=== PATIENT | female | born 1955 | race Asian ===

== ENCOUNTER 2016-05-03 15:58 | Emergency (ER) | payer OTHER ==
[2016-05-03 17:48] VITALS: BP 143/73
--- NOTE | 2016-05-03 18:17 | Diag Imaging Result Document ---
PROCEDURE NAME: CHEST-2 VIEWS - 05/03/2016 CHEST, 2 VIEWS: FINDINGS: No comparison exam. Heart size appears within normal limits. The lungs appear clear. There is no pleural effusion or pneumothorax seen. There is mild thoracic dextroscoliosis noted. IMPRESSION: No evidence of acute disease.
--- NOTE | 2016-05-03 18:22 | PROVIDER DOCUMENTATION ---
HPI-EENT General - General Chief Complaint: Cold Symptoms Stated Complaint: CONGESTED, NOT FEELING WEEL Time Seen by Provider: 05/03/16 18:18 Allergies/Adverse Reactions: Patient Allergies Allergy/AdvReac Type Severity Reaction Status Date / Time No Known Allergies Allergy Verified 05/03/14 10:32 Home Medications: Home Medication List Medication Instructions Recorded Confirmed Last Taken Type Bacitracin Ointment 1 applicatn TOP PRN #1 tube 05/03/14 Unknown Rx Lisinopril/Hydrochlorothiazide 1 tab PO DAILY 05/03/14 05/03/14 05/03/14 06:00 History [Lisinopril-Hctz 10-12.5 mg Tab] Amoxicillin/Pot Clavulanate 875 mg PO Q12HR #20 tablet 05/03/16 Unknown Rx [Augmentin] Methylprednisolone [Medrol Dosepak] 4 mg PO DIRECTED #1 package 05/03/16 Unknown Rx - History of Present Illness-EENT General Nature of Presenting Problem: Pt c/o body aches, cough, congestion. Symptoms started yesterday. EENT Location: reports: nose, throat Quality of Pain: reports: pressure, sharp, throbbing Severity: reports: moderate Onset/Duration: reports: 6 days ago Timing: reports: still present, getting worse Prearrival Treatment: Initiated over the counter meds Associated Symptoms: reports: cough, facial pain/swelling, sinus infection, sore throat Other injuries?: denies: neck, head, back, other Locality of Occurance: Home Similar Symptoms Previously?: No Recently seen or treated by another doctor?: No - Eyes Eye Problem Symptoms: denies: eye pain, decrease vision, blurred vision, double vision, curtain, other, burning, itching, sensitivity to light, redness, matting , orbital swelling, eyelid swelling, foreign body sensation - Ears Ear Problem Symptoms: reports: earache. denies: none, hearing loss, ringing in ears, roaring in ears, discharge, other - Throat/Dental Throat/Dental Problem Symptoms: reports: sore throat. denies: none, toothache, jaw pain, swelling of jaw/face, trouble breathing, throat swelling, unable to swallow, other Recently seen a dentist or have an appointment?: No Review of Systems - Adult - REVIEW OF SYSTEMS - ADULT Constitutional: reports: see HPI. denies: no symptoms reported, chills, fever, fatique, night sweats, weight gain, weight loss, other Eyes: reports: no symptoms reported. denies: see HPI, discharge, dry eyes, decreased vision, blurred vision, double vision, eye pain, redness, other Ears, Nose, Mouth & Throat: reports: see HPI, ear pain, sinus problem, throat pain. denies: no symptoms reported, ear discharge, hearing loss, tinnitus, epistaxis, nose pain, loose teeth, mouth/dental pain, mouth swelling, hoarseness , throat swelling, other Cardiovascular: reports: no symptoms reported. denies: see HPI, chest pain, edema, heart murmur, irregular heart rate, orthopnea, palpitations, poor circulation, PND, syncope, other Respiratory: reports: see HPI, cough. denies: no symptoms reported, chronic cough, dyspnea on exertion, excessive sputum production, hemoptysis, pleurisy, shortness of breath, wheezing, other Gastrointestinal: reports: no symptoms reported. denies: see HPI, abdominal pain, hematemesis, constipation, diarrhea, difficulty swallowing, frequent heartburn, nausea, poor appetite, rectal bleeding, vomiting, other Genitourinary: reports: no symptoms reported. denies: see HPI, dysuria, discharge, frequency, flank pain, frequent UTI's, hematuria, hesitency, incontinence, urinary retention, urgency, other All Other Systems: Reviewed and Negative Past History - Adult - PAST MEDICAL HISTORY-ADULT Review of Records: reports: Old Records Reviewed, Nursing Assessment Review, Medications Reviewed, Social history reviewed & non-contributory. Major Childhood Illnesses: reports: denies history Cardiovascular: reports: HTN Respiratory: reports: denies history Gastrointestinal: reports: denies history Obstetrical/Gynecological: reports: denies history Genitourinary: reports: denies history Musculoskeletal: reports: denies history Neurological: reports: denies history Endocrine/Immune: reports: denies history Other Conditions: reports: denies history - PRIOR SURGERIES/PROCEDURES Surgical/Procedure History: reports: hysterectomy, other (ear) - PRIOR HOSPITALIZATIONS Prior Hospitalizations: reports: none - IMMUNIZATION STATUS Childhood Immunizations: See Nurse Assessment Flu Vaccine: See Nurse Assessment - FAMILY HISTORY Family History: reviewed, not pertinent Physical Exam- EENT - Physical Exam EENT Initial Vital Signs Reviewed: Yes General Appearance: appears well, alert, no apparent distress Eye Exam: bilateral eye: normal inspection, PERRL, EOMI Ear Exam: bilateral ear: auricle normal, canal normal, TM normal Nasal Exam: discharge, sinus tenderness. negative: normal inspection, active bleeding, dried blood, foreign body, other Throat Exam: normal mouth inspection, pharynx normal. negative: dental tenderness, excessive drooling, foreign body, mandibular swelling, maxillary swelling, pharynx swelling, pharynx tenderness, tongue swollen, tonsillar exudate, tonsillar swelling, trismus, uvula swelling, voice changes, other Neck: non-tender, full range of motion, supple, normal inspection. negative: Brudzinski's sign, carotid bruit, C-spine tenderness, limited range of motion, lymphadenopathy, meningismus, trachial deviation, tender lateral, tender midline , thyromegaly, other Respiratory: chest non-tender, lungs clear, normal breath sounds, no pleuratic chest pain, no respiratory distress, no accessory muscle use. negative: respiratory distress, decreased breath sounds, accessory muscle use, crackles, rales, rhonchi, stridor, wheezing, dull on percussion, prolonged expiration, pain on inspiration, plerual rub, retractions, splinting, decreased rate, increased rate, crepitus, other Cardiovascular: normal peripheral pulses, regular rate, rhythm, no edema, no gallop, no JVD, no murmur. negative: JVD, bradycardia, tachycardia, diastolic murmur, systolic murmur, gallop/S3, gallop/S4, extra beats, friction rub, irregularly irregular, PMI displaced laterally, other Abdominal Exam: normal bowel sounds, non tender, soft, no organomegaly, no pulsatile mass. negative: abdominal bruit, abnormal bowel sounds, distended, guarding, rigid, rebound, tenderness, hernia, mass, hepatomegaly, spleenomegaly , McBurney's point tenderness, Estrada's sign, obturator sign, prominent aortic pulsations, psoas, Rovsing's sign, other Lymphatic: no adenopathy. negative: axilla node tender, cervical node tenderness, inguinal node tender, enlargement, striations, streaking, other Back Exam: normal inspection, no CVA tenderness, no vertebral tenderness. negative: CVA tenderness, decreased range of motion, ecchymosis, kyphosis, lordosis, muscle spasm, scoliosis, swelling, vertebral tenderness, other Extremity: normal range of motion, non-tender, normal gait, normal inspection, no pedal edema, no calf tenderness, normal capillary refill. negative: pelvis stable, abnormal NV exam, calf tenderness, deformity, erythema, inflammation, joint effusion, pulse deficit, pedal edema, slow capillary refill, swelling, tenderness, other Integumentary: normal color, normal turgor, warm/dry Neurologic: grossly normal Psych/Mental Status: normal thought process, oriented x 3 Progress - PLAN OF CARE/RESULTS Progress/Plan/Lab Results: Laboratory Tests 05/03/16 05/03/16 16:08 16:08 Influenza A (Rapid) NEGATIVE Influenza B (Rapid) NEGATIVE Group A Strep Rapid NEGATIVE Orders Category Date Time Status CHEST-2 VIEWS [RAD] Stat Exams 05/03/16 16:[address] Stat Lab 05/03/16 16:[address] Stat Lab 05/03/16 16:08 Completed CefTRIAXONE [Rocephin] Med 05/03/16 18:26 Discontinued 1 gm IM NOW ONE Dexamethasone [Decadron] Med 05/03/16 18:26 Discontinued 4 mg IM NOW ONE Lidocaine 1% Pf [Xylocaine-Mpf 1%] Med 05/03/16 18:26 Discontinued 5 ml INJ NOW ONE Vital Signs Temp Pulse Resp BP Pulse Ox 05/03/16 17:46 100.5 F H 82 18 143/73 98 05/03/16 16:05 100.2 F H 85 18 162/73 96 No Known Allergies Allergy (Verified 05/03/14 10:32) Bacitracin Ointment 1 applicatn TOP PRN #1 tube 05/03/14 Lisinopril/Hydrochlorothiazide [Lisinopril-Hctz 10-12.5 mg Tab] 1 tab PO DAILY 05/03/14 Amoxicillin/Pot Clavulanate [Augmentin] 875 mg PO Q12HR #20 tablet 05/03/16 Methylprednisolone [Medrol Dosepak] 4 mg PO DIRECTED #1 package 05/03/16 Laboratory 05/03/16 05/03/16 16:08 16:08 Influenza A (Rapid) NEGATIVE Influenza B (Rapid) NEGATIVE Group A Strep Rapid NEGATIVE Departure - Departure Time of Disposition Order: 18:25 DIAGNOSIS: Sinusitis Qualifiers: Sinusitis location: maxillary Chronicity: acute Recurrence: not specified as recurrent Qualified Code(s): J01.00 - Acute maxillary sinusitis, unspecified Upper respiratory infection Qualifiers: URI type: unspecified URI Qualified Code(s): J06.9 - Acute upper respiratory infection, unspecified Disposition: HOME 01 Certified Medical Emergency: Emergent Condition: Stable Additional Instructions: ED Follow Up Instructions: You have been treated by a care provider in the Emergency Department. These instructions are being provided to you so you can have an understanding of how to care for yourself upon discharge. Upon discharge from the Emergency Department, you are responsible for making arrangements for follow-up care by a physician of your choice. Take all prescribed medications as directed. Return to the Emergency Department immediately for any new or worsening symptoms. You may call the Physician Referral phone number at [phone] to obtain a list of Physicians who are taking new patients. Prescriptions: Amoxicillin/Pot Clavulanate [Augmentin] 875 mg PO Q12HR #20 tablet Methylprednisolone [Medrol Dosepak] 4 mg PO DIRECTED #1 package Referrals: Lizzie Eller MD [STAFF PHYSICIAN] - None,PCP [Primary Care Provider] - Forms: Return to School/Parent Work Instructions: Amoxicillin capsules or tablets, Sinusitis, [id number], Upper Respiratory Infection, Adult, [id number], Methylprednisolone tablets Attestation - Physician/ ALBER Attestation Patient care was provided by Advanced Practice Provider:: Yes Advanced Practice Provider:: Nathaniel Hodge Advanced Practice Provider documentation review:: The Mid-level provider documentation, treatment plan and medical decision making was reviewed by the physician who agrees with all treatment and medical decision making by the MLP.
[2016-05-03] MEDS ORDERED: DECADRON IM ONE (18:26)
[2016-05-03] MEDS ORDERED: XYLOCAINE-MPF 1% INJ ONE (18:26)
[2016-05-03] MEDS ORDERED: ROCEPHIN IM ONE (18:26)
== END 2016-05-03 19:17 | disposition home or self-care (01) ==
LOC: P.ED 15:58
DX: J01.00 Acute maxillary sinusitis, unspecified (principal); J06.9 Acute upper respiratory infection, unspecified; R05 Cough; R09.81 Nasal congestion; R52 Pain, unspecified; J02.9 Acute pharyngitis, unspecified; H92.09 Otalgia, unspecified ear; I10 Essential (primary) hypertension; Z79.899 Other long term (current) drug therapy
CPT/HCPCS: 71020; 87081; 87430; 87804; 96372; J0696; J1100